=== PATIENT | female | born 1970 | race African-American/Black ===

== ENCOUNTER 2019-03-10 09:21 | Emergency (ER) | payer OTHER ==
[~2019-03-10] VITALS: Ht 162.6 cm; Wt 136.1 kg
--- OUTSIDE RECORDS SUMMARY | 2019-03-10 09:24 | XMS REPORT | Summary of Care ---
Author Author [facility] Organization [facility] Address Unknown Phone Unavailable Encounter HQ Delontentr_celine(FIN) [id number] Date(s): 06/05/18 - 06/05/18 [facility] [address] [place] [phone] Encounter Diagnosis Encounter for screening mammogram for malignant neoplasm of breast (Final) - 06/13/18 Discharge Disposition: Home or Self Care Attending Physician: Davi Akins MD Referring Physician: Davi Akins MD Vital Signs No data available for this section Problem List Condition Effective Dates Status Health Status Informant Asthma(Confirmed) Resolved Morbid Active obesity(Confirmed) Allergies, Adverse Reactions, Alerts Substance Reaction Severity Status Fluzone Active Medications No data available for this section Results No data available for this section Immunizations Given and Recorded Vaccine Date Status Refusal Reason pneumococcal 23-valent vaccine 01/26/17 Given Procedures Procedure Date Related Diagnosis Body Site Status Mammogram1 2016 Completed Bone density scan2 2014 Completed Carpal tunnel release Completed TL - Tubal ligation Completed 1normal 2normal Social History Social History Type Response Substance Abuse Use: None. Exercise Exercise type: Walking. Employment/School Status: Employed. 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 Alcohol Current, Frequency: 1-2 times per month. Smoking Status Never smoker; Exposure to Tobacco Smoke None; Cigarette Smoking Last 365 Days No; Reg Smoking Cessation Counseling No entered on: 02/19/17 Assessment and Plan No data available for this section
--- OUTSIDE RECORDS SUMMARY | 2019-03-10 09:24 | XMS REPORT ---
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 Allergies, Adverse Reactions, Alerts This patient has no known allergies or adverse reactions. Medications This patient has no known medications. Encounters Start Date/Time End Date/Time Encounter Type Admission Type Attending Clinicians Care Facility Care Department Encounter ID 2019-02-16 22:45:00 2019-02-16 22:45:00 Emergency E [facility] [id number]
--- OUTSIDE RECORDS SUMMARY | 2019-03-10 09:24 | XMS REPORT | Summary of Care ---
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 Phone Dilia Wade PCP Encounter HQ Loki(FIN) [phone] Date(s): 02/16/19 - 02/17/19 [facility] [address] [employer] provided by [facility] [place] [address]- Encounter Diagnosis Atrial fibrillation with rapid ventricular response (Discharge Diagnosis) - 02/17/19 Discharge Disposition: Home or Self Care Attending Physician: Sukh Escoto MD Vital Signs 1 2 3 Most recent to oldest [Reference Range]: 97.8 DegF (02/17/19 4:43 AM) 98.4 DegF (02/16/19 10:52 PM) Temperature Oral [96.4-99.1 DegF] 130/74 mmHg (02/17/19 4:43 AM) 152/78 mmHg *HI* (02/17/19 4:13 AM) 139/54 mmHg (02/17/19 3:00 AM) Blood Pressure [90-140/60-90 mmHg] 20 BRMIN (02/17/19 4:43 AM) 20 BRMIN (02/17/19 4:26 AM) 16 BRMIN (02/17/19 4:13 AM) Respiratory Rate [14-20 BRMIN] 104 bpm *HI* (02/16/19 11:56 PM) 108 bpm *HI* (02/16/19 10:52 PM) Peripheral Pulse Rate [60-100 bpm] Problem List Condition Effective Dates Status Health Status Informant Asthma(Confirmed) Resolved Morbid Active obesity(Confirmed) Allergies, Adverse Reactions, Alerts Substance Reaction Severity Status Fluzone Active Medications diltiazem 30 mg, Route: IVP, ONCE, Dosing Weight 127.727, kg, Priority: STAT, Start date: 02/17/19 0:44:00 CDT, Stop date: 02/17/19 0:44:00 CDT Start Date: 02/17/19 Stop Date: 02/17/19 Status: Discontinued diltiazem 30 mg, Route: IVP, ONCE, Dosing Weight 127.727, kg, Priority: STAT, Start date: 02/17/19 0:30:00 CDT, Stop date: 02/17/19 0:30:00 CDT Start Date: 02/17/19 Stop Date: 02/17/19 Status: Discontinued diltiazem 20 mg, 4 mL, Route: IVP, Drug form: INJ, ONCE, Dosing Weight 127.727, kg, Priori ty: STAT, Start date: 02/17/19 3:55:00 CDT, Stop date: 02/17/19 3:55:00 CDT Notes: (Same as: Cardizem) Start Date: 02/17/19 Stop Date: 02/17/19 Status: Discontinued etomidate 10 mg, 5 mL, Route: IV, Drug form: INJ, ONCE, Dosing Weight 127.727, kg, Start d ate: 02/17/19 3:31:00 CDT, Stop date: 02/17/19 3:31:00 CDT Notes: (Same as: Amidate). Per state nursing law etomidate can only be given by a nurse if patient is intubated or being intubated (unless the nurse is a AUTOMATIC BRINE MIXER OPERATOR). Start Date: 02/17/19 Stop Date: 02/17/19 Status: Discontinued Isolyte S PH-7.4 (Bolus) IV 1,000 mL, Route: IV, ONCE, Dosing Weight 127.727 kg, Start date: 02/17/19 0:44:0 0 CDT, Stop date: 02/17/19 0:44:00 CDT Start Date: 02/17/19 Stop Date: 02/17/19 Status: Completed procainamide + Dextrose 5% in Water IV 246 mL 1,000 mg, 2 mL, Route: IV, ONCE, Dosing Weight 127.727, kg, Start date: 02/17/19 0:54:00 CDT, Stop date: 02/17/19 0:54:00 CDT Notes: (Same as: Pronestyl) Start Date: 02/17/19 Stop Date: 02/17/19 Status: Completed Results Most recent to 1 oldest [Reference Range]: CDC HIV 4th GEN Negative [Negative] *NA* (02/16/19 11:14 PM) Neutrophils # 3.9 K/CMM [1.5-8.1 K/CMM] (02/16/19 11:15 PM) Lymphocytes # 2.6 K/CMM [1.0-5.5 K/CMM] (02/16/19 11:15 PM) Monocytes # [0.0-0.8 0.7 K/CMM K/CMM] (02/16/19 11:15 PM) Eosinophils # 0.2 K/CMM [0.0-0.5 K/CMM] (02/16/19 11:15 PM) Basophils # [0.0-0.2 0.1 K/CMM K/CMM] (02/16/19 11:15 PM) eGFR 84 mL/min/1.73m2 1 *NA* (02/16/19 11:15 PM) AGAP [10.0-20.0 14.9 mEq/L mEq/L] (02/16/19 11:15 PM) Basophils [0.0-1.0 0.8 % %] (02/16/19 11:15 PM) BUN [7-22 mg/dL] 14 mg/dL (02/16/19 11:15 PM) Calcium Lvl 9.2 mg/dL [8.5-10.5 mg/dL] (02/16/19 11:15 PM) Chloride Lvl [95-109 105 mEq/L mEq/L] (02/16/19 11:15 PM) CO2 [24-32 mEq/L] 26 mEq/L (02/16/19 11:15 PM) Creatinine Lvl 0.93 mg/dL [0.50-1.40 mg/dL] (02/16/19 11:15 PM) Eosinophils [0.0-4.0 2.7 % %] (02/16/19 11:15 PM) Glucose Lvl [70-99 164 mg/dL mg/dL] *HI* (02/16/1915 PM) Hct [36.0-48.0 %] 37.5 % (02/16/19 PM) Hgb [12.0-16.0 g/dL] 11.9 g/dL *LOW* (02/16/1915 PM) Potassium Lvl 3.9 mEq/L [3.5-5.1 mEq/L] (02/16/19 PM) Lymphocytes 35.3 % [20.0-40.0 %] (02/16/1915 PM) MCH [27.0-31.0 pg] 22.1 pg *LOW* (02/16/19 PM) MCHC [32.0-36.0 31.8 g/dL g/dL] *LOW* (02/16/1915 PM) MCV [80.0-98.0 fL] 69.5 fL *LOW* (02/16/19 PM) Microcyte [None 2+ Seen] *ABN* (02/16/19 PM) Monocytes [2.0-12.0 9.3 % %] (02/16/19:15 PM) MPV [7.4-10.4 fL] 9.8 fL (02/16/1915 PM) Sodium Lvl [135-145 142 mEq/L mEq/L] (02/16/1915 PM) Platelet [133-450 214 K/CMM K/CMM] (02/16/19 PM) Segs [45.0-75.0 %] 51.9 % (02/16/19:15 PM) RBC [4.20-5.40 5.39 M/CMM M/CMM] (02/16/1915 PM) RDW [11.5-14.5 %] 17.2 % *HI* (02/16/19:15 PM) Troponin-I <0.02 ng/mL [0.00-0.40 ng/mL] (02/16/1915 PM) WBC [3.7-10.4 K/CMM] 7.5 K/CMM (02/16/19:15 PM) 1Result Comment: The eGFR is calculated using the CKD-EPI formula. In most young, healthy individuals the eGFR will be >90 mL/min/1.73m2. The eGFR declines with age. An eGFR of 60-89 may be normal in some populations, particularly the elderly, for whom the CKD-EPI formula has not been extensively validated. Use of the eGFR is not recommended in the following populations: Individuals with unstable creatinine concentrations, including patients and those with serious co-morbid conditions. Patients with extremes in muscle mass or diet. The data above are obtained from the National Kidney Disease Education Program ( NKDEP) which additionally recommends that when the eGFR is used in patients with extremes of body mass index for purposes of drug dosing, the eGFR should be mul tiplied by the estimated BMI. Immunizations Given and Recorded Vaccine Date Status [...] Reg Smoking Cessation Counseling No entered on: 02/16/19 Assessment and Plan No data available for this section
--- OUTSIDE RECORDS SUMMARY | 2019-03-10 09:24 | XMS REPORT | Continuity of Care Document ---
Author Author Herbie suttonann Organization Interface Address Unknown Phone Unavailable Problems Problem Status Onset Date Classification Date Reported Comments Source Atrial fibrillation with rapid ventricular response 02/17/2019 02/19/2019 [facility] SHORTNESS OF BREATH Active 02/16/2019 [facility] Encounter for screening mammogram for malignant neoplasm of breast 06/13/2018 12/23/2018 [facility] Z12.31 - ENCNTR SCREEN MAMMOGRAM FOR MA Active 05/09/2018 [facility] Asthma Resolved Problem 02/19/2019 SHAREE Blanco,[facility] Morbid obesity Active Problem [facility]19[facility] Medications Medication Details Route Status Patient Instructions Ordering Provider Order Date Source Diltiazem 20 mg, 4 mL, Route: IVP, Drug form: INJ, ONCE, Dosing Weight 127.727, kg, Priority: STAT, Start date: 02/17/19 3:55:00 CDT, Stop date: 02/17/19 3:55:00 CDTNotes: (Same as: Cardizem) Inactive 02/17/2019 [facility] Etomidate 10 mg, 5 mL, Route: IV, Drug form: INJ, ONCE, Dosing Weight 127.727, kg, Start date: 02/17/19 3:31:00 CDT, Stop date: 02/17/19 3:31:00 CDTNotes: (Same as: Amidate). Per state nursing law etomidate can only be given by a nurse if patient is intubated or being intubated (unless the nurse is a PLAIN CLOTHES POLICE OFFICER). Inactive 02/17/2019 [facility] Procainamide 1,000 mg, 2 mL, Route: IV, ONCE, Dosing Weight 127.727, kg, Start date: 02/17/19 0:54:00 CDT, Stop date: 02/17/19 0:54:00 CDTNotes: (Same as: Pronestyl) Inactive 02/17/2019 [facility] Isolyte S PH-7.4 (Bolus) IV 1,000 mL, Route: IV, ONCE, Dosing Weight 127.727 kg, Start date: 02/17/19 0:44:00 CDT, Stop date: 02/17/19 0:44:00 CDT Inactive 02/17/2019 [facility] Diltiazem 30 mg, Route: IVP, ONCE, Dosing Weight 127.727, kg, Priority: STAT, Start date: 02/17/19 0:44:00 CDT, Stop date: 02/17/19 0:44:00 CDT Inactive 02/17/2019 [facility] Diltiazem 30 mg, Route: IVP, ONCE, Dosing Weight 127.727, kg, Priority: STAT, Start date: 02/17/19 0:30:00 CDT, Stop date: 02/17/19 0:30:00 CDT Inactive 02/17/2019 [facility] Allergies, Adverse Reactions, Alerts Substance Category Reaction Severity Reaction type Status Date Reported Comments Source Fluzone Assertion Drug allergy Active [facility] Immunizations Immunization Date Given Site Status Last Updated Comments Source pneumococcal 23-valent vaccine 01/26/2017 Left Deltoid completed Sherwin SHAREE Blanco,[facility] Results Order Name Results Value Reference Range Date Interpretation Comments Source CARDIAC ENZYMES Troponin-I null 0.00 - 0.40 02/17/2019 [facility] ELECTROLYTES AGAP 14.9 meq/L 10.0 - 20.0 02/17/2019 [facility] ELECTROLYTES BUN 14 mg/dL 7 - 22 02/17/2019 [facility] ELECTROLYTES Glucose Lvl 164 mg/dL 70 - 99 02/17/2019 [facility] ELECTROLYTES Creatinine Lvl 0.93 mg/dL 0.50 - 1.40 02/17/2019 [facility] ELECTROLYTES Sodium Lvl 142 meq/L 135 - 145 02/17/2019 [facility] ELECTROLYTES CO2 26 meq/L 24 - 32 02/17/2019 [facility] ELECTROLYTES Chloride Lvl 105 meq/L 95 - 109 02/17/2019 [facility] ELECTROLYTES Potassium Lvl 3.9 meq/L 3.5 - 5.1 02/17/2019 [facility] ELECTROLYTES Calcium Lvl 9.2 mg/dL 8.5 - 10.5 02/17/2019 [facility] ELECTROLYTES eGFR 84 mL/min/1.73m2 02/17/2019 Result Comment: The eGFR is calculated using the [...] from the National Kidney Disease Education Program (NKDEP) which additionally recommends that when the eGFR is used in patients with extremes of body mass index for purposes of drug dosing, the eGFR should be multiplied by the estimated BMI. [facility] HEMATOLOGY Hgb 11.9 g/dL 12.0 - 16.0 02/17/2019 [facility] HEMATOLOGY Hct 37.5 % 36.0 - 48.0 02/17/2019 [facility] HEMATOLOGY Platelet 214 K/CMM 133 - 450 02/17/2019 [facility] HEMATOLOGY MCH 22.1 pg 27.0 - 31.0 02/17/2019 [facility] HEMATOLOGY MCV 69.5 fL 80.0 - 98.0 02/17/2019 [facility] HEMATOLOGY MCHC 31.8 g/dL 32.0 - 36.0 02/17/2019 [facility] HEMATOLOGY RDW 17.2 % 11.5 - 14.5 02/17/2019 [facility] HEMATOLOGY WBC 7.5 K/CMM 3.7 - 10.4 02/17/2019 [facility] HEMATOLOGY RBC 5.39 M/CMM 4.20 - 5.40 02/17/2019 [facility] HEMATOLOGY MPV 9.8 fL 7.4 - 10.4 02/17/2019 [facility] HEMATOLOGY Neutrophils # 3.9 K/CMM 1.5 - 8.1 02/17/2019 [facility] HEMATOLOGY Lymphocytes # 2.6 K/CMM 1.0 - 5.5 02/17/2019 [facility] HEMATOLOGY Microcyte 2+ *ABN* (02/16/19 11:15 PM) None Seen 02/17/2019 [facility] HEMATOLOGY Monocytes # 0.7 K/CMM 0.0 - 0.8 02/17/2019 [facility] HEMATOLOGY Eosinophils # 0.2 K/CMM 0.0 - 0.5 02/17/2019 [facility] HEMATOLOGY Basophils # 0.1 K/CMM 0.0 - 0.2 02/17/2019 [facility] HEMATOLOGY Lymphocytes 35.3 % 20.0 - 40.0 02/17/2019 [facility] HEMATOLOGY Monocytes 9.3 % 2.0 - 12.0 02/17/2019 [facility] HEMATOLOGY Eosinophils 2.7 % 0.0 - 4.0 02/17/2019 [facility] HEMATOLOGY Basophils 0.8 % 0.0 - 1.0 02/17/2019 [facility] HEMATOLOGY Segs 51.9 % 45.0 - 75.0 02/17/2019 [facility] IMMUNOLOGY CDC HIV 4th GEN Negative *NA* (02/16/19 11:14 PM) Negative 02/17/2019 [facility] Chest 2 views DX Chest 2 views DX EXAM: XR CHEST 2 VIEWS DATE: 02/16/2019 at 2320 hours INDICATION: Chest pain COMPARISON: None TECHNIQUE: PA and lateral chest radiographs FINDINGS: Lines and tubes: None. Lungs and pleura: No pulmonary or pleural based abnormality is identified. Heart and mediastinum: The heart size is normal for technique. The mediastinal contours are normal. Pulmonary vascularity is normal. Bones: No acute bony abnormality is identified. IMPRESSION: No acute cardiopulmonary abnormality. 02/16/2019 - - Read by: Ayana Yeung MD Dictated Date/time: 02/16/19 23:23 Electronically Signed by: Ayana Yeung MD 02/16/19 23:26 FINAL REPORT [facility] Breast Mammo Scrn SOLITARIO w loli incl CAD MA Breast Mammo Scrn SOLITARIO w loli incl CAD MA BILATERAL DIGITAL SCREENING MAMMOGRAM 3D/2D WITH CAD: 06/05/2018 CLINICAL: /Screening. Current study was evaluated with a Computer Aided Detection (CAD) system. COMPARISON:Comparison is made to exams dated: 10/20/2016 mammogram, 01/21/2015 mammogram, and 01/08/2015 mammogram - [facility]. TECHNIQUE: Digital Breast Tomosynthesis was performed and utilized for Interpretation. Current study was also evaluated with a Computer Aided Detection (CAD) system. FINDINGS: The tissue of both breasts is heterogeneously dense, which could obscure detection of small masses. No significant masses, calcifications, or other findings are seen in either breast. There has been no significant interval change. IMPRESSION: NEGATIVE RECOMMENDATION:There is no mammographic evidence of malignancy. A 1 year screening mammogram is recommended.(06/06/2019) This exam was interpreted at [id number] for [facility]. Damian Gonsalez M.D. carl/jerome:06/05/2018 16:57:32 Fur Tanner(s): RT Lindsey(R)(M), [facility] letter sent: BI-RADS 1/2 Dense Mammogram BI-RADS: 1 Negative 06/05/2018 - - Read by: Damian Gonsalez MD Dictated Date/time: 06/05/18 16:57 Electronically Signed by: Damian Gonsalez MD 06/05/18 16:57 FINAL REPORT [facility] Vital Signs Vital Sign Value Date Comments Source Temperature Oral (F) 97.8 F 02/17/2019 [facility] Systolic (mm Hg) 130 02/17/2019 [facility] Diastolic (mm Hg) 74 02/17/2019 [facility] Respitory Rate 20 02/17/2019 [facility] Respitory Rate 20 02/17/2019 [facility] Systolic (mm Hg) 152 02/17/2019 [facility] Diastolic (mm Hg) 78 02/17/2019 [facility] Respitory Rate 16 02/17/2019 [facility] Systolic (mm Hg) 139 02/17/2019 [facility] Diastolic (mm Hg) 54 02/17/2019 [facility] Heart Rate 104 02/17/2019 [facility] Heart Rate 108 02/17/2019 [facility] Temperature Oral (F) 98.4 F 02/17/2019 [facility] Encounters Location Location Details Encounter Type Encounter Number Reason For Visit Attending Provider ADM Date DC Date Status Source Outpatient [id number] KEYSHA CLAYTON 10/04/2016 Active [facility] Outpatient [id number] KEVEN CHACON 01/19/2017 Active [facility] Outpatient [id number] KEYSHA CLAYTON 01/25/2017 Active [facility] Outpatient [id number] KEVEN CHACON 01/26/2017 Active [facility] Outpatient [id number] KEVEN CHACON 02/08/2017 Active [facility] Outpatient [id number] AUREA YU 02/19/2017 Active [facility] Outpatient [id number] KEVEN CHACON 03/05/2017 Active [facility] [place] [facility] [id number] Davi Akins 06/05/2018 06/06/2018 [facility] Emergency [id number] Sukh Escoto 02/17/2019 02/17/2019 [facility] Outpatient [id number] Keven [facility] 03/21/2019 Active [facility] Procedures Procedure Code Date Perfomer Comments Source Mammogram<sup>1</sup> [id number] 10/08/2016 normal [facility] [place] Mammogram<sup>1</sup> [id number] 10/08/2016 normal [facility] Bone density scan<sup>2</sup> [id number] 10/08/2014 normal [facility] [place] Bone density scan<sup>2</sup> [id number] 10/08/2014 normal [facility] Carpal tunnel release [id number] [facility] [place] TL - Tubal ligation [id number] [facility] [place] Carpal tunnel release [id number] [facility] TL - Tubal ligation [id number] [facility]
[2019-03-10] MEDS ORDERED: IBUPROFEN 600 MG TAB PO STA (09:45)
[2019-03-10] MEDS ORDERED: IBUPROFEN 200 MG TAB ONE (09:49)
--- NOTE | 2019-03-10 10:00 | NUR ---
Pt taken to and from radiology room for x-rays on her ankle/foot.
--- NOTE | 2019-03-10 10:18 | Diagnostic Imaging Report ---
Exam: Left ankle radiographs-3 views History: Status post trauma. Comparison: None. Findings: No evidence of acute fracture or malalignment. The ankle mortise is preserved. There is mild soft tissue edema in the ankle, most pronounced medially. There are well-corticated bony fragments adjacent to the medial malleolus, which likely represents sequela of prior trauma. There is mild Achilles enthesopathy. There is a small plantar calcaneal spur. Impression: Soft tissue edema, most pronounced in the medial ankle without evidence of acute fracture. Sequela of prior trauma involving the medial ankle. Signed by: Dr. Evelia Márquez MD on 03/10/2019 10:15 AM
[2019-03-10] MEDS ORDERED: ULTRAM50 MG PO (10:45)
[2019-03-10 11:11] VITALS: BP 159/95
== END 2019-03-10 10:51 | disposition home or self-care (01) ==
LOC: FSED 09:21
DX: S93.492A Sprain of other ligament of left ankle, initial encounter (principal); W18.39XA Other fall on same level, initial encounter; V03.00XA Pedestrian on foot injured in collision with car, pick-up truck or van in nontraffic accident, initial encounter; Y92.481 Parking lot as the place of occurrence of the external cause; E11.9 Type 2 diabetes mellitus without complications; I48.91 Unspecified atrial fibrillation
CPT/HCPCS: 99284